=== PATIENT | female | born 2000 | race Two or more races ===

== ENCOUNTER 2020-01-10 14:27 | Emergency (ER) | payer OTHER, SELFPAY ==
[2020-01-10 14:32] VITALS: BP 141/75; PULSE 119; RESP 15; TEMP 37.2; O2SAT 100
[2020-01-10 15:24] VITALS: BP 119/62; BP 139/75; PULSE 73; PULSE 75
[2020-01-10 15:25] VITALS: BP 104/75; PULSE 88
[2020-01-10 15:42] LABS: Basophils Percent Auto 0.2 % (0.2-1.2); Eosinophils Absolute Auto 0.1 K/mm3 (0-0.3); Eosinophils Percent Auto 0.9 % (0-4.4); Hematocrit 42.3 % (37.0-47.0); Hemoglobin 14.5 g/dL (12.0-15.0); Immature Granulocyte Absolute 0.02 K/mm3 (0.00-0.031); Immature Granulocyte Percent A 0.2 % (0-0.5); Lymphocytes Absolute Auto 2.81 K/mm3 (0.9-3.2); Lymphocytes Percent Auto 32.2 % (18.3-44.2); Mean Corpuscular HGB Conc 34.3 g/dl (32-36); Mean Corpuscular Hemoglobin 30.1 pg (26-34); Mean Corpuscular Volume 87.8 fl (80-100); Mean Platelet Volume 10.4 fl (7.4-10.4); Monocytes Absolute Auto 0.6 K/mm3 (0.1-0.6); Monocytes Percent Auto 7.1 % (2.6-8.5); Neutrophils Absolute Auto 5.2 K/mm3 (1.3-6.7); Neutrophils Percent Auto 59.4 % (45.5-73.1); Platelet Count Result 345 k/mm3 (150-375); Red Blood Count 4.82 M/mm3 (4.2-5.4); Red Cell Distribution Width 12.2 % (11.5-14.5); White Blood Count 8.7 K/mm3 (4.5-10.0)
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
[2020-01-10 18:03] VITALS: BP 132/75; PULSE 92; RESP 16
== END 2020-01-10 18:04 | disposition home or self-care (01) ==
PROVIDERS: Emergency Provider Emergency Medicine; PCP Pediatrics
DX: O46.91 Antepartum hemorrhage, unspecified, first trimester (principal); O9A.211 Injury, poisoning and certain other consequences of external causes complicating pregnancy, first trimester; O99.281 Endocrine, nutritional and metabolic diseases complicating pregnancy, first trimester; E89.0 Postprocedural hypothyroidism; V49.9XXA Car occupant (driver) (passenger) injured in unspecified traffic accident, initial encounter; Z3A.00 Weeks of gestation of pregnancy not specified
CPT/HCPCS: 36415; 81025; 84702; 85025; 86850; 86900; 86901; 99284

== ENCOUNTER 2020-01-11 18:18 | Emergency (ER) | payer OTHER, SELFPAY ==
--- NOTE | ~2020-01-11 | US_ITS ---
EXAMINATION: US OB <=14 wk fetus w TV EXAM DATE: 01/11/2020 19:52 INDICATION: Pelvic pain, . Vaginal bleeding. Passing clots. First trimester. TECHNIQUE: Pelvic obstetrical transabdominal and transvaginal sonogram was performed by a techncolleen argueta. There are multiple grayscale and Doppler images available for interpretation. There are no filipe ier studies of this gestation for comparison. FINDINGS: Uterus measures 8.4 x 5.4 x 5.1 cm, and is morphologically normal. There is no intrauterine gestation identified. Endometrial stripe measures 3 mm, within normal limits. There is small free p elvic fluid. Right adnexa: The right ovary is normal in size and morphology. Left adnexa: The left ovary is normal in size and morphology. IMPRESSION: No intrauterine or extrauterine identified. Follow up as indicated clinically. Reviewed, dictated and finalized at location A.
[2020-01-11 18:22] VITALS: BP 139/69; PULSE 105; RESP 20; TEMP 37; O2SAT 96
[2020-01-11] MEDS: SODIUM CHLORIDE 0.9% IV 1,000 ML 999 ML IV CONT (19:01)
[2020-01-11 19:13] LABS: Basophils Percent Auto 0.1 % (0.2-1.2); Eosinophils Absolute Auto 0.1 K/mm3 (0-0.3); Eosinophils Percent Auto 0.4 % (0-4.4); Hematocrit 37.3 % (37.0-47.0); Hemoglobin 12.7 g/dL (12.0-15.0); Immature Granulocyte Absolute 0.05 K/mm3 (0.00-0.031); Immature Granulocyte Percent A 0.3 % (0-0.5); Lymphocytes Absolute Auto 1.07 K/mm3 (0.9-3.2); Lymphocytes Percent Auto 7.3 % (18.3-44.2); Mean Corpuscular Hemoglobin 29.6 pg (26-34); Mean Corpuscular Volume 86.9 fl (80-100); Monocytes Absolute Auto 0.7 K/mm3 (0.1-0.6); Neutrophils Absolute Auto 12.8 K/mm3 (1.3-6.7); Neutrophils Percent Auto 86.9 % (45.5-73.1); Platelet Count Result 281 k/mm3 (150-375); Red Blood Count 4.29 M/mm3 (4.2-5.4); Red Cell Distribution Width 12.3 % (11.5-14.5); White Blood Count 14.7 K/mm3 (4.5-10.0)
[2020-01-11 19:22] LABS: INR 1.1; Prothrombin Time 13.5 Seconds (11.1-14.7)
[2020-01-11 19:24] LABS: Partial Thromboplastin Time 29.7 SECONDS (22.3-36.8)
[2020-01-11 19:25] LABS: Alanine Aminotransferase 13 U/L (4-35); Albumin Level 4.3 g/dL (3.7-5.6); Alkaline Phosphatase 67 U/L (45-116); Aspartate Amino Transferase 20 U/L (14-36); Bilirubin,Total 0.1 mg/dL (0.2-1.3); Blood Urea Nitrogen 7 mg/dL (8-21); Calcium 9.1 mg/dL (8.9-10.7); Carbon Dioxide 25 mmol/L (22-30); Chloride 103 mmol/L (98-107); Estimated CRCL calculation 115 ml/min; Estimated Glomerular Filt Rate > 60; Glucose 109 mg/dL (65-105); Potassium 3.9 mmol/L (3.4-5.0); Sodium 135 mmol/L (134-143)
[2020-01-11 19:58] VITALS: BP 98/54; PULSE 74
[2020-01-11 20:00] VITALS: BP 107/57; PULSE 76
[2020-01-11 20:02] VITALS: BP 111/68; PULSE 78
--- NOTE | 2020-01-11 20:26 | ED.PREGNANCY ---
HPI - General Chief complaint: Vaginal Bleeding <Iris Call PA-C - Last Filed: 01/11/20 21:06> Stated complaint: vag bleeding/pain <EUGENIA Vo Last Filed: 01/11/20 21:06> Time Seen by Provider: 01/11/20 18:36 <EUGENIA Vo Last Filed: 01/11/20 21:06> Source: patient <EUGENIA Vo Last Filed: 01/11/20 21:06> Mode of arrival: ambulatory <EUGENIA Vo Last Filed: 01/11/20 21:06> Limitations: no limitations <EUGENIA Vo Last Filed: 01/11/20 21:06> History of Present Illness HPI Narrative: This is a 19 year old who presents to the ER for pelvic cramping since this afternoon. Reports she was seen here yesterday for vaginal bleeding. Reports she has been spotting over the last week, but since yesterday the bleeding became more heavy. Reports she has continued to bleed today and started having some cramping. Denies fever, vomiting, or dysuria. <EUGENIA Vo Last Filed: 01/11/20 21:06> Related Data Home medications: Home Medications Medication Instructions Recorded Confirmed No Home Medications 01/11/20 01/11/20 <EUGENIA Vo Last Filed: 01/11/20 21:06> Allergies/Adverse reactions: Allergies Allergy/AdvReac Type Severity Reaction Status Date / Time No Known Allergies Allergy Unverified 07/29/16 17:20 <EUGENIA Vo Last Filed: 01/11/20 21:06> Review of Systems Review of Systems: Narrative: CONSTITUTIONAL: Denies fever GASTROINTESTINAL: Reports pelvic pain. Denies nausea, vomiting GENITOURINARY: Denies dysuria <EUGENIA Vo Last Filed: 01/11/20 21:06> All systems reviewed & are unremarkable except as noted in HPI and below <EUGENIA Vo Last Filed: 01/11/20 21:06> [facility] Past Medical History Medical History: Medical History (Updated 01/12/20 @ 00:00 by Background Daiza) History of anxiety History of depression <Iris Call PA-C - Last Filed: 01/11/20 21:06> Surgical History Surgical History: Surgical History (Updated 01/10/20 @ 17:22 by Danna Vera MD) History of thyroidectomy <Iris Call PA-C - Last Filed: 01/11/20 21:06> Social History Social History: Social History (Updated 01/10/20 @ 17:23 by Danna Vera MD) Smoking status: Never smoker Alcohol intake: never Substance use: never Gender identity (if verbalized by the patient): Female <Iris Call PA-C - Last Filed: 01/11/20 21:06> Exam Narrative: Exam Narrative: GENERAL: Well-appearing, well-nourished, and in no acute distress. HEAD: Normocephalic, atraumatic. EYES: EOMI. CHEST: Clear to auscultation. No respiratory distress. No wheezes rales or rhonchi HEART: Regular rate and rhythm. No murmur heard. Normal peripheral pulses. ABDOMEN: Soft, nontender, nondistended, normal active bowel sounds. EXTREMITIES: Normal range of motion. No edema. SKIN: Warm, dry, no rash. NEURO: No focal deficits. Alert and oriented x3. PSYCH: Anxious PELVIC: Normal appearing cervix, closed. Small amount of dark red blood in the vaginal vault <EUGENIA Vo Last Filed: 01/11/20 21:06> Course Consultations Consultation #1: Spoke with Dr. Herzog about patient and work-up who would like beta-hCG done in 48 hours and patient to be given bleeding precautions. She will follow-up with patient in clinic <EUGENIA Vo Last Filed: 01/11/20 21:06> Date: 01/11/20 <EUGENIA Vo Last Filed: 01/11/20 21:06> Time: 20:56 <EUGENIA Vo Last Filed: 01/11/20 21:06> Vital Signs Vital signs: Vital Signs Temperature 98.6 F 01/11/20 18:22 Pulse Rate 105 H 01/11/20 18:22 Respiratory Rate 20 01/11/20 18:22 Blood Pressure 139/69 01/11/20 18:22 Pulse Oximetry 96 01/11/20 18:22 Temperature 98.6 F 01/11/20 18:22 Pulse Rate 78 01/11/20 20:02 Respiratory Rate 20
== END 2020-01-11 21:30 | disposition home or self-care (01) ==
PROVIDERS: Physician Assistant; Emergency Provider General Practice; PCP Pediatrics
DX: O03.9 Complete or unspecified spontaneous abortion without complication (principal); E89.0 Postprocedural hypothyroidism
CPT/HCPCS: 36415; 76801; 76817; 80053; 84702; 85025; 85461; 85610; 85730; 96361; 96374; 99284; J0131; J7030

== ENCOUNTER 2020-01-21 13:50 | Outpatient (RCR) | payer OTHER, SELFPAY ==
[2020-01-21 15:20] LABS: Beta HCG Quantitative 4.78 mIU/ML
== END 2020-04-20 23:59 | disposition home or self-care (01) ==
LOC: ANHLAB 13:50
PROVIDERS: PCP Pediatrics; Visit Provider Obstetrics & Gynecology
DX: O03.9 Complete or unspecified spontaneous abortion without complication (principal)
CPT/HCPCS: 36415; 84702